=== PATIENT | female | born 1980 | race Caucasian/White ===

== ENCOUNTER 2018-01-20 09:00 | Inpatient (IN) ==
[2018-01-20] MEDS ORDERED: METHYLERGONOVINE 0.2 MG/ML INJECTION IM PRN (09:19)
[2018-01-20] MEDS ORDERED: ACETAMINOPHEN 500 MG TABLET PO PRN (09:19)
[2018-01-20] MEDS ORDERED: CALCIUM CARBONATE Chewable 500mg TABLET PO PRN (09:19)
[2018-01-20] MEDS ORDERED: LIDOCAINE 1% (10mg/ml) 2mL INJ PF SDV ID PRN (09:19)
[2018-01-20] MEDS ORDERED: MAG-AL + SIM ORAL LIQUID 30ml PO PRN (09:19)
[2018-01-20] MEDS ORDERED: CARBOPROST 250 MCG/ML INJECTION IM PRN (09:19)
[2018-01-20] MEDS: LR 1,000 ML IV PRN ×2 (09:43→10:45)
--- NOTE | 2018-01-20 09:48 | Anesthesia Preoperative Report ---
Anesthesia Epidural/Spinal Rec - Date and Time Date: 01/20/18 Procedure: Labor Epidural Plan: Epidural - Vital Signs /Para: P:1 - Medictaions & Allergies Inpatient Medications: Current Medications Acetaminophen (Tylenol) 500 - 1,000 mg PO Q4H PRN PRN Reason: Pain Al Hydroxide/Mg Hydroxide (Maalox Plus) 30 ml PO Q3H PRN PRN Reason: Indigestion Calcium Carbonate (Tums) 500 - 1,000 mg PO Q2H PRN PRN Reason: Indigestion Carboprost Tromethamine (Hemabate) 250 mcg IM O PRN PRN Reason: .Downtime Lactated Ringer's (Lactated Ringers) 1,000 mls @ 999 mls/hr IV .Q1H1M PRN Last Admin: 01/20/18 09:43 Dose: 999 mls/hr Lidocaine HCl (Xylocaine-Mpf 1% Vial) 0.2 mg ID O PRN PRN Reason: IV Start Methylergonovine Maleate (Methergine) 0.2 mg IM O PRN Misoprostol (Cytotec) 800 mcg TN ONCE PRN Allergies/Adverse Reactions: Allergies Allergy/AdvReac Type Severity Reaction Status Date / Time codeine Allergy Mild CONSTIPATIO Verified 08/14/14 09:05 N - Home Medications Home Medications: Home Medications Medication Instructions Recorded Confirmed Type Cetirizine HCl [Zyrtec] 1 tab PO DAILY 01/07/18 01/07/18 History Colace 1 tab PO PRN 01/07/18 01/07/18 History Peg 3350 238 G Bottle [Miralax] 17 gm PO PRN PRN 01/07/18 01/07/18 History Vit 108/Iron/Folic AC 1 each PO DAILY 01/07/18 01/07/18 History [ One Tablet] - Medical History Respiratory: DENIES: Asthma Cardiovascular: DENIES: Angina, Hypertension Gastrointestional: DENIES: Gastroesophageal Reflux Disease Neuro/Musculoskeletal: Denies: Depression Other History: Reports: Now DENIES: Anesthesia Reactions - Surgical History Reproductive Surgery/Treatment: DENIES: Section Anesthesia Reactions: None Hx Family Anesthesia Reaction: No History of Motion Sickness: No - Social History Smoking Status: Never smoker Substance Use Type: does not use - Pertinent Findings Lab Data: CBC and BMP 01/20/18 09:36 - Physical Exam Respiratory Exam: lungs clear, bilateral breath sounds equal Cardiovascular Exam: regular rate and rhythm - Airway Assessment Mallampati Score: II TMD: 3 Fingerbreadths Neck Extension: good Overall Assessment: may be difficult intubation - ASA ASA Score: 2 - Discussion Discussion: Discussed risks/options/alternatives of anesthesia and questions answered. Patient consents. Nursing pain assessment noted. Anesthesia Discussion: spouse Attestation Statement: Prior to the delivery of any anesthetic medication, I examined the patient, developed the plan, obtained the patient's consent and discussed the risk and benefits of the procedure with the patient/guardian.
[2018-01-20] MEDS ORDERED: OXYTOCIN DRIP 30 UNIT/500 ML ML IV SCH (12:00)
[2018-01-20] MEDS ORDERED: DiphenhydrAMINE 25 MG CAPSULE PO PRN (12:00)
[2018-01-20] MEDS ORDERED: MEASLES-MUMPS-RUBELLA VACCINE 0.5ml INJECTION SQ ONE (12:00)
[2018-01-20] MEDS ORDERED: HYDROCORTISONE 2.5% CREAM 30gm RECTALLY PRN (12:00)
[2018-01-20] MEDS ORDERED: ROPIVACAINE 1% 10MG/ML INJ 200 MG, SUFentanil 50 MCG in NS 100 ML EPI PRN (12:11)
[2018-01-20] MEDS ORDERED: ONDANSETRON 4 MG/2 ML INJECTION IVP PRN (12:11)
[2018-01-20] MEDS ORDERED: DiphenhydrAMINE 50 MG/ML INJECTION IVP PRN (12:11)
[2018-01-20] MEDS ORDERED: NALOXONE 0.4 MG/ML INJECTION IVP PRN (12:11)
[2018-01-20] MEDS: IBUPROFEN 800 MG TABLET PO PRN ×2 (12:53→21:16)
[2018-01-20] MEDS: Oxycodone/Acetaminophen 5/325 1 TAB PO PRN ×3 (12:53→21:17)
--- NOTE | 2018-01-20 14:13 | Labor and Delivery Note ---
DATE 01/20/2018 Miriam is a 37-year-old 2, para 1 at 38 weeks 6 days gestational age who was sent over to Maternal/Child from clinic for labor and spontaneous rupture of membranes. She received an epidural. She progressed very well throughout labor and only had to push for a few contractions. She had a spontaneous vaginal delivery of a viable male infant, Apgars 8/9, weight 3179 grams, name "Kvng". The baby was vigorous at delivery so he was placed on mom's abdomen and the cord clamping was delayed for more than two minutes. The placenta delivered spontaneously. She had a first-degree laceration that was bleeding so it was repaired with 2-0 Vicryl. Mom and baby tolerated the delivery well. MICHAELA
[2018-01-20 15:21] VITALS: BMI 27.3
--- NOTE | 2018-01-20 20:10 | Anesthesia Postoperative Note ---
- Date and Time Date: 01/20/18 Time: 20:09 - Status Patient Participated in Evaluation: Patient Participated in Person Vital Signs: Temperature 98.7 F 01/20/18 16:08 Pulse Rate 69 01/20/18 16:08 Respiratory Rate 16 01/20/18 16:08 Blood Pressure 116/65 01/20/18 16:08 Pulse Oximetry 96 01/20/18 16:08 Respiratory Function: Airway Patent Cardiovascular Function: Regular Pulse Mental Status: Alert and Oriented Pain Intensity: 0 Hydration: Taking PO Fluids Complications During Recover: None Apparent - Follow-Up Instructions Instructions: Per Surgeon
[2018-01-21] MEDS: Oxycodone/Acetaminophen 5/325 1 TAB PO PRN (05:37)
[2018-01-21] MEDS: IBUPROFEN 800 MG TABLET PO PRN ×2 (05:38→14:41)
--- NOTE | 2018-01-21 08:04 | OB/GYN Progress Note ---
OB-PP Progress Note - General PPD1 Maternal Group B Strep: Negative Maternal blood type: A+ Maternal Rubella Status: Not Immune - Subjective Date: 01/21/18 Lochia: Minimal Pain: controlled Voiding: voiding - Objective Vital Signs: Last Vital Signs Temp 97.8 F 01/21/18 05:30 Pulse 67 01/21/18 05:30 Resp 16 01/21/18 05:30 BP 109/65 01/21/18 05:30 Pulse Ox 99 01/21/18 05:30 General: alert and oriented Abdomen: fundus firm, non-tender Extremities: non-tender Laboratory: Laboratory Results - last 24 hr 01/20/18 01/20/18 09:36 09:36 WBC 9.4 RBC 4.10 Hgb 12.6 Hct 37.7 MCV 92.0 MCH 30.7 MCHC 33.4 RDW Std Deviation 42.7 Plt Count 265 MPV 10.3 Blood Type A Positive Antibody Screen Negative - Assessment Assessment: - Plan Plan: routine care MMR
[2018-01-21] MEDS ORDERED: DOCUSATE CALCIUM 240 MG CAPSULE PO SCH (09:00)
[2018-01-21 15:00] VITALS: BP 108/68; PULSE 78; RESP 14; TEMP 98.6; O2SAT 100
== END 2018-01-21 15:25 | disposition home or self-care (01) | DRG 775 ==
LOC: MC 09:00
PROVIDERS: ADMIT Obstetrics & Gynecology; ATTEND Obstetrics & Gynecology